=== PATIENT | male | born 1940 | race Caucasian/White ===

== ENCOUNTER 2019-08-10 06:52 | Outpatient (CLI) | payer MEDICARE ==
--- NOTE | 2019-08-10 15:49 | CT ---
CT LEFT UPPER EXTREMITY ELBOW WITHOUT CONTRAST: 08/10/19 HISTORY: Pain. Osteoarthritis. COMPARISON: None. FINDINGS: BONES: There is no acute fracture or malalignment. Large ring osteophytes of the radial neck. There is compl ete loss of joint space of the lateral margin of the radiocapitellar joint with large subchondral cys ts of the capitellum. There is moderate valgus angulation due to the asymmetric degenerative change of the radiocapitellar joint. Moderate osteophyte formation of the olecranon as well as coronoid process of the ulnar. LIGAMENTS: There is high grade ossification of the lateral collateral ligament as well as ulnar collateral ligam ent and lateral ulnar collateral ligaments. TENDONS: High grade enthesopathic change of the triceps upon the olecranon. 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 MUSCLES: Mild muscle atrophy. IMPRESSION: 1. 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 There is complete cartilage loss, subcortical cysts and o steophyte formation of the radiocapitellar joint. 2. Mild ossification of the medial and lateral collateral ligaments. 3. 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 4. Mild atrophy of the musculature around the elbow, greatest at the supinator which can be resu lt of posterior interosseous nerve compression. POS: HOME
== END 2019-08-10 06:53 | disposition home or self-care (01) ==
LOC: BICCT 06:52
PROVIDERS: ATTEND Orthopaedic Surgery
DX: M19.022 Primary osteoarthritis, left elbow (principal); M67.824 Other specified disorders of tendon, left elbow

== ENCOUNTER 2020-09-27 09:36 | Outpatient (CLI) | payer MEDICARE | END 2020-09-27 09:37 | disposition home or self-care (01) | LOC: BICRAD 09:36 | PROVIDERS: ATTEND Family Medicine | DX: R09.89 Other specified symptoms and signs involving the circulatory and respiratory systems (principal) | CPT/HCPCS: 71046 ==